=== PATIENT | male | born 1980 | race Caucasian/White ===

== ENCOUNTER 2016-11-24 11:37 | Emergency (ER) | payer MEDICAID ==
[2016-11-24] MEDS ORDERED: ORPHENADRINE 60 MG/2 ML AMP ONE (12:58)
[2016-11-24] MEDS ORDERED: KETOROLAC 60 MG/2 ML VIAL IM ONE (12:58)
== END 2016-11-24 17:03 | disposition home or self-care (01) ==
LOC: ER 11:37
CPT/HCPCS: 72050; 72072; 72125; 96372